=== PATIENT | male | born 1960 | race Caucasian/White ===

== ENCOUNTER 2021-02-24 15:01 | Inpatient (IN) | payer MEDICARE, MEDICAID ==
[~2021-02-24] VITALS: Ht 167.6 cm; Wt 152.0 kg
[~2021-02-24 15:01] MED LIST: ASCO500C18 PO; ASPI-1406 PO; BISA10SU62 RC; COR12 PO; DOCU-138 PO; FINA5TAB3 PO; HYDR-4134 PO; INSU100I28 SQ; LEVE500T9 PO; LEVO125T PO; MOM MT; MULT-622 PO; OXYB5TAB17 PO; RISP05 PO; TAMS-11 PO
[2021-02-24 15:59] LABS: BASOPHILS % 0.5 % (0.0-2.0); EOSINOPHILS % 0.5 % (0.0-5.0); HEMATOCRIT. 34.6 % (42.0-52.0); HEMOGLOBIN. 10.9 g/dL (14.0-18.0); LYMPHOCYTES % 7.4 % (20.0-50.0); MEAN CORPUSCULAR HEMOGLOBIN 23.1 pg (28.0-32.0); MEAN CORPUSCULAR VOLUME 73.8 fL (80.0-94.0); MEAN PLATELET VOLUME 6.9 fl (7.4-10.4); MONOCYTES % 7.7 % (2.0-8.0); NEUTROPHILS % 83.9 % (40.0-76.0); PLATELET 353 x1000/uL (130-400); RED BLOOD CELL COUNT 4.69 mill/uL (4.7-6.1); RED CELL DISTRIBUTION WIDTH 15.9 % (11.6-14.6)
[2021-02-24 16:03] LABS: CHLORIDE 97 mEq/L (98-107)
[2021-02-24] MEDS ORDERED: SODIUM CHLORIDE 0.9% 1,000 ML IV ONE ×2 (17:00→17:30)
[2021-02-24] MEDS ORDERED: POTASSIUM CHLORIDE 20MEQ TABLET SR PO NR (17:30)
[2021-02-24] MEDS ORDERED: INSULIN REGULAR (DRIP) 100 UNITS in SODIUM CHLORIDE 0.9% 100 ML IV NR (17:30)
[2021-02-24 18:10] LABS: CHLORIDE 98 mEq/L (98-107)
[2021-02-24 18:16] LABS: PHOSPHORUS 1.6 mg/dL (2.5-4.9)
[2021-02-24 18:46] LABS: CLARITY URINE CLEAR (CLEAR); COLOR URINE YELLOW (YELLOW); KETONES URINE 2+ (NEGATIVE); LEUKOCYTE ESTERASE URINE NEGATIVE (NEGATIVE); NITRITE URINE NEGATIVE (NEGATIVE); OCCULT BLOOD URINE 1+ (NEGATIVE); PROTEIN URINE 2+ (NEGATIVE); SPECIFIC GRAVITY URINE 1.029 (1.005-1.030); UROBILINOGEN URINE 0.2 E.U./dL (0.2-1.0)
[2021-02-24] MEDS ORDERED: HYDROCODONE/ACETAMINOPHEN 5/325MG TABLET PO PRN (22:15)
[2021-02-24] MEDS ORDERED: SODIUM CHLORIDE 0.45% 1,000 ML IV SCH (22:15)
[2021-02-24] MEDS ORDERED: SODIUM PHOS,M-BASIC-D-BASIC 15 MM in DEXT 5% WATER 245 ML IV NR (22:15)
[2021-02-24] MEDS ORDERED: MAGNESIUM 2 G PREMIX 50 ML IV NR (22:15)
[2021-02-24] MEDS ORDERED: ONDANSETRON HCL 4MG/2ML INJ IV PRN (22:15)
[2021-02-24] MEDS ORDERED: HYDROCODONE/ACETAMINOPHEN 10/325MG TABLET PO PRN (22:17)
[2021-02-25 00:11] LABS: CHLORIDE 102 mEq/L (98-107)
[2021-02-25] MEDS: PIPERACILLIN/TAZOBACTAM 3.375G in DEXT 5% WATER 50ML IV SCH ×3 (01:23→21:12)
[2021-02-25 04:56] LABS: BASOPHILS % 0.4 % (0.0-2.0); EOSINOPHILS % 1.3 % (0.0-5.0); HEMATOCRIT. 33.2 % (42.0-52.0); HEMOGLOBIN. 10.5 g/dL (14.0-18.0); MEAN CORPUSCULAR HEMOGLOBIN 23.6 pg (28.0-32.0); MEAN CORPUSCULAR VOLUME 74.8 fL (80.0-94.0); MONOCYTES % 8.7 % (2.0-8.0); NEUTROPHILS % 78.6 % (40.0-76.0); PLATELET 345 x1000/uL (130-400); RED BLOOD CELL COUNT 4.44 mill/uL (4.7-6.1); RED CELL DISTRIBUTION WIDTH 15.8 % (11.6-14.6)
[2021-02-25 05:03] LABS: CHLORIDE 101 mEq/L (98-107)
[2021-02-25] MEDS ORDERED: DEXTROSE 50% WATER 50ML SYRINGE IV PRN (07:00)
[2021-02-25] MEDS: INSULIN LISPRO (MEDIUM DOSE) 100 UNITS/ML SUBCUT SCH ×4 (07:28→21:02)
[2021-02-25] MEDS ORDERED: PIPERACILLIN/TAZOBACTAM 3.375 G in DEXTROSE 5% WATER 50 ML IV SCH (09:00)
[2021-02-25 09:20] VITALS: BP 125/56
[2021-02-25] MEDS ORDERED: INSULIN GLARGINE UD 100 UNITS/ML SYR SUBCUT SCH ×2 (10:00→23:00)
[2021-02-25] MEDS ORDERED: NALOXONE HCL 0.4MG/ML VIAL IV PRN (10:15)
[2021-02-25] MEDS: BLOOD SUGAR DIAGNOSTIC STRIP TEST SCH ×3 (11:43→21:02)
[2021-02-25 12:00] VITALS: BP 128/60
[2021-02-25] MEDS: SODIUM CHLORIDE 0.9% 1,000 ML IV SCH ×2 (12:00→21:01)
[2021-02-25] MEDS: FLUCONAZOLE 200 MG/100ML BAG 100 ML IV SCH (14:16)
[2021-02-25] MEDS: LIDOCAINE 5% PATCH TOP SCH (14:17)
[2021-02-25 16:00] VITALS: BP 146/67
[2021-02-25 20:00] VITALS: BP 153/70
[2021-02-25] MEDS: BENAZEPRIL 5MG TABLET PO SCH ×2 (22:00→22:24)
[2021-02-25] MEDS: MORPHINE SULFATE 2 MG/ML CPJ (NOT FOR IM USE) IV PRN (22:23)
[2021-02-25] MEDS: GUAIFENESIN 200MG/10ML SUGAR FREE UDC PO PRN (22:24)
[2021-02-26] VITALS: BP 153/58
[2021-02-26] MEDS: GUAIFENESIN 200MG/10ML SUGAR FREE UDC PO PRN ×3 (03:20→20:43)
[2021-02-26] MEDS: MORPHINE SULFATE 2 MG/ML CPJ (NOT FOR IM USE) IV PRN ×5 (03:21→23:53)
[2021-02-26 04:00] VITALS: BP 170/71
[2021-02-26] MEDS: PIPERACILLIN/TAZOBACTAM 3.375G in DEXT 5% WATER 50ML IV SCH ×3 (05:35→22:22)
[2021-02-26] MEDS: BLOOD SUGAR DIAGNOSTIC STRIP TEST SCH ×4 (07:20→20:39)
[2021-02-26] MEDS: LEVOTHYROXINE SODIUM 125MCG TABLET PO SCH ×2 (07:20→09:15)
[2021-02-26] MEDS: LIDOCAINE 5% PATCH TOP SCH (08:59)
[2021-02-26] MEDS: BENAZEPRIL 5MG TABLET PO SCH (09:00)
[2021-02-26] MEDS: INSULIN LISPRO (MEDIUM DOSE) 100 UNITS/ML SUBCUT SCH ×4 (09:02→20:51)
[2021-02-26 12:00] VITALS: BP 145/73
[2021-02-26] MEDS: INSULIN GLARGINE UD 100 UNITS/ML SYR SUBCUT SCH (12:57)
[2021-02-26] MEDS: FLUCONAZOLE 200 MG/100ML BAG 100 ML IV SCH (14:13)
[2021-02-26 16:00] VITALS: BP 142/66
[2021-02-26] MEDS ORDERED: DIPHENOXYLATE/ATROPINE 2.5/0.025MG TABLET PO PRN (17:30)
[2021-02-26 20:00] VITALS: BP 151/67
[2021-02-26 23:53] VITALS: BP 156/78
[2021-02-27] MEDS: GUAIFENESIN 200MG/10ML SUGAR FREE UDC PO PRN ×3 (03:11→20:19)
[2021-02-27 04:00] VITALS: BP 163/78
[2021-02-27] MEDS: MORPHINE SULFATE 2 MG/ML CPJ (NOT FOR IM USE) IV PRN ×3 (05:11→20:19)
[2021-02-27] MEDS: PIPERACILLIN/TAZOBACTAM 3.375G in DEXT 5% WATER 50ML IV SCH ×3 (06:03→22:09)
[2021-02-27] MEDS: LEVOTHYROXINE SODIUM 125MCG TABLET PO SCH (06:03)
[2021-02-27] MEDS: BLOOD SUGAR DIAGNOSTIC STRIP TEST SCH ×4 (07:25→20:32)
[2021-02-27] MEDS: INSULIN LISPRO (MEDIUM DOSE) 100 UNITS/ML SUBCUT SCH ×4 (07:50→20:32)
[2021-02-27 08:00] VITALS: BP 154/72
[2021-02-27] MEDS ORDERED: LIDOCAINE HCL/EPINEPHRINE 1%-EPI 1:100,000 20 ML VIAL INFIL NR (09:00)
[2021-02-27] MEDS: LIDOCAINE 5% PATCH TOP SCH (09:20)
[2021-02-27] MEDS: BENAZEPRIL 5MG TABLET PO SCH (09:21)
[2021-02-27] MEDS: NYSTATIN 100,000 UNITS/GM CREAM 15GM TOP SCH ×3 (09:21→17:00)
[2021-02-27] MEDS: INSULIN GLARGINE UD 100 UNITS/ML SYR SUBCUT SCH (10:50)
[2021-02-27 12:00] VITALS: BP 151/74
[2021-02-27] MEDS: FLUCONAZOLE 200 MG/100ML BAG 100 ML IV SCH (15:47)
[2021-02-27 16:00] VITALS: BP 139/54
[2021-02-27 19:49] VITALS: BP 146/79
[2021-02-28] VITALS: BP 193/134
[2021-02-28] MEDS: GUAIFENESIN 200MG/10ML SUGAR FREE UDC PO PRN ×2 (00:58→15:52)
[2021-02-28] MEDS: MORPHINE SULFATE 2 MG/ML CPJ (NOT FOR IM USE) IV PRN (00:58)
[2021-02-28] MEDS: BLOOD SUGAR DIAGNOSTIC STRIP TEST SCH ×4 (06:22→21:28)
[2021-02-28] MEDS: LEVOTHYROXINE SODIUM 125MCG TABLET PO SCH (06:22)
[2021-02-28] MEDS ORDERED: SKIN ADHESIVE 0.7 GM EA TOP ONE (06:27)
[2021-02-28] MEDS ORDERED: BUPIVACAINE HCL 0.5% (5MG/ML) 50ML ONE (06:27)
[2021-02-28] MEDS ORDERED: POLYMYXIN B SULFATE 500000 UNITS/VIAL ONE (06:28)
[2021-02-28] MEDS: PIPERACILLIN/TAZOBACTAM 3.375G in DEXT 5% WATER 50ML IV SCH ×3 (07:05→21:22)
[2021-02-28] MEDS ORDERED: HYDROMORPHONE HCL/PF 2MG/ML (OR) ONE ×2 (07:53→09:41)
[2021-02-28] MEDS ORDERED: ONDANSETRON HCL 4MG/2ML INJ IV PRN ×2 (08:15→08:45)
[2021-02-28] MEDS ORDERED: MORPHINE SULFATE 2 MG/ML CPJ (NOT FOR IM USE) IV PRN ×2 (08:15)
[2021-02-28] MEDS ORDERED: HYDROCODONE/ACETAMINOPHEN 5/325MG TABLET PO PRN (08:15)
[2021-02-28] MEDS ORDERED: LABETALOL 5MG/ML SYR 20 MG/4 ML SYRINGE IV PRN (08:45)
[2021-02-28] MEDS ORDERED: MEPERIDINE HCL/PF 25MG/ML CPJ IV PRN (08:45)
[2021-02-28] MEDS ORDERED: HYDROMORPHONE HCL/PF 2MG/ML CPJ IV PRN (08:45)
[2021-02-28] MEDS: BENAZEPRIL 5MG TABLET PO SCH (09:00)
[2021-02-28] MEDS ORDERED: INSULIN GLARGINE UD 100 UNITS/ML SYR SUBCUT SCH (10:00)
[2021-02-28] MEDS: NYSTATIN 100,000 UNITS/GM CREAM 15GM TOP SCH ×3 (11:09→18:52)
[2021-02-28] MEDS: LIDOCAINE 5% PATCH TOP SCH (11:12)
[2021-02-28 12:00] VITALS: BP 134/62
[2021-02-28] MEDS: INSULIN REGULAR HUMAN (HIGH DOSE) 100 UNITS/ML 3ML VIAL SUBCUT SCH ×3 (12:50→21:25)
[2021-02-28] MEDS ORDERED: INSULIN GLARGINE UD 100 UNITS/ML SYR SUBCUT NR (14:30)
[2021-02-28] MEDS: FLUCONAZOLE 200 MG/100ML BAG 100 ML IV SCH (15:15)
[2021-02-28] MEDS: DEXT 5%/0.45% NACL KCL 20MEQ/L 1,000 ML IV SCH (15:35)
[2021-02-28 16:00] VITALS: BP 141/63
[2021-02-28 20:00] VITALS: BP 150/69
[2021-03-01] VITALS: BP 160/65
[2021-03-01 04:00] VITALS: BP 150/69
[2021-03-01] MEDS: DEXT 5%/0.45% NACL KCL 20MEQ/L 1,000 ML IV SCH ×2 (06:10→06:11)
[2021-03-01] MEDS: LEVOTHYROXINE SODIUM 125MCG TABLET PO SCH ×2 (06:10→07:20)
[2021-03-01] MEDS: PIPERACILLIN/TAZOBACTAM 3.375G in DEXT 5% WATER 50ML IV SCH ×2 (06:10→16:58)
[2021-03-01] MEDS: BLOOD SUGAR DIAGNOSTIC STRIP TEST SCH ×4 (07:41→21:00)
[2021-03-01 08:00] VITALS: BP 186/88
[2021-03-01] MEDS: INSULIN REGULAR HUMAN (HIGH DOSE) 100 UNITS/ML 3ML VIAL SUBCUT SCH ×4 (08:43→22:02)
[2021-03-01] MEDS: BENAZEPRIL 5MG TABLET PO SCH (09:00)
[2021-03-01] MEDS: MUPIROCIN 2% OINT 22GM TOP SCH ×4 (09:00→17:00)
[2021-03-01] MEDS: HYDRALAZINE HCL 50MG TABLET PO SCH ×2 (09:13→22:04)
[2021-03-01] MEDS: LIDOCAINE 5% PATCH TOP SCH (09:13)
[2021-03-01] MEDS: NYSTATIN 100,000 UNITS/GM CREAM 15GM TOP SCH ×3 (09:14→17:00)
[2021-03-01] MEDS ORDERED: INSULIN GLARGINE UD 100 UNITS/ML SYR SUBCUT SCH ×2 (10:00→22:00)
[2021-03-01 12:00] VITALS: BP 147/75
[2021-03-01 16:00] VITALS: BP 149/71
[2021-03-01] MEDS: FLUCONAZOLE 200 MG/100ML BAG 100 ML IV SCH (16:58)
[2021-03-01] MEDS: INSULIN REGULAR (HUMULIN R) 300UNITS/3ML VIAL SUBCUT SCH (17:11)
[2021-03-01 20:00] VITALS: BP 168/79
[2021-03-01] MEDS ORDERED: VANCOMYCIN 2,000 MG in DEXT 5% WATER 500 ML IV NR (21:00)
[2021-03-02] VITALS: BP 160/80
[2021-03-02 04:00] VITALS: BP 152/79
[2021-03-02] MEDS ORDERED: VANCOMYCIN 1 G PREMIX 200 ML IV SCH (06:00)
[2021-03-02] MEDS: LEVOTHYROXINE SODIUM 125MCG TABLET PO SCH ×2 (06:34→07:20)
[2021-03-02] MEDS: INSULIN REGULAR HUMAN (HIGH DOSE) 100 UNITS/ML 3ML VIAL SUBCUT SCH ×4 (07:03→21:31)
[2021-03-02] MEDS: BLOOD SUGAR DIAGNOSTIC STRIP TEST SCH ×4 (07:05→21:32)
[2021-03-02] MEDS: INSULIN REGULAR (HUMULIN R) 300UNITS/3ML VIAL SUBCUT SCH ×3 (07:05→17:46)
[2021-03-02 08:00] VITALS: BP 136/77
[2021-03-02] MEDS ORDERED: LIDOCAINE HCL 1% 10 MG/ML 10ML VIAL ONE (08:08)
[2021-03-02] MEDS: NYSTATIN 100,000 UNITS/GM CREAM 15GM TOP SCH ×3 (09:00→16:29)
[2021-03-02] MEDS: MUPIROCIN 2% OINT 22GM TOP SCH ×3 (09:00→16:28)
[2021-03-02] MEDS: LIDOCAINE 5% PATCH TOP SCH (09:00)
[2021-03-02] MEDS ORDERED: LANTUSUD SUBCUT (09:11)
[2021-03-02] MEDS ORDERED: HYDR-4135 PO (09:11)
[2021-03-02] MEDS ORDERED: BENA5TAB6 PO (09:11)
[2021-03-02] MEDS ORDERED: LEVO125T8 PO (09:11)
[2021-03-02] MEDS ORDERED: INSU100V3 SUBCUT (09:11)
[2021-03-02] MEDS: BENAZEPRIL 5MG TABLET PO SCH (09:33)
[2021-03-02] MEDS: HYDRALAZINE HCL 50MG TABLET PO SCH ×2 (09:33→21:13)
[2021-03-02] MEDS: INSULIN GLARGINE UD 100 UNITS/ML SYR SUBCUT SCH ×2 (10:00→21:15)
[2021-03-02 12:00] VITALS: BP 138/74
[2021-03-02] MEDS: FLUCONAZOLE 200 MG/100ML BAG 100 ML IV SCH (14:00)
[2021-03-02 16:00] VITALS: BP 128/77
[2021-03-02 20:00] VITALS: BP 165/65
[2021-03-03] VITALS: BP 150/66
[2021-03-03 04:00] VITALS: BP 153/71
[2021-03-03] MEDS: BLOOD SUGAR DIAGNOSTIC STRIP TEST SCH ×4 (06:39→21:34)
[2021-03-03] MEDS: INSULIN REGULAR (HUMULIN R) 300UNITS/3ML VIAL SUBCUT SCH ×3 (06:44→17:44)
[2021-03-03] MEDS: INSULIN REGULAR HUMAN (HIGH DOSE) 100 UNITS/ML 3ML VIAL SUBCUT SCH ×4 (06:45→21:39)
[2021-03-03 07:32] LABS: HEMATOCRIT 31.7 % (42.0-52.0); HEMOGLOBIN 10.2 g/dL (14.0-18.0); MEAN CORPUSCULAR HEMOGLOBIN 23.5 pg (28.0-32.0); MEAN CORPUSCULAR VOLUME 72.7 fL (80.0-94.0); PLATELET 400 x1000/uL (130-400); RED BLOOD CELL COUNT 4.35 mill/uL (4.7-6.1); RED CELL DISTRIBUTION WIDTH 15.7 % (11.6-14.6)
[2021-03-03 07:46] LABS: CHLORIDE 97 mEq/L (98-107)
[2021-03-03 08:00] VITALS: BP 140/68
[2021-03-03] MEDS: NYSTATIN 100,000 UNITS/GM CREAM 15GM TOP SCH ×3 (09:00→16:27)
[2021-03-03] MEDS: MUPIROCIN 2% OINT 22GM TOP SCH ×3 (09:00→16:27)
[2021-03-03] MEDS: LIDOCAINE 5% PATCH TOP SCH (09:00)
[2021-03-03] MEDS: BENAZEPRIL 5MG TABLET PO SCH (09:05)
[2021-03-03] MEDS: HYDRALAZINE HCL 50MG TABLET PO SCH ×2 (09:05→21:34)
[2021-03-03 12:00] VITALS: BP 161/65
[2021-03-03] MEDS ORDERED: INSULIN REGULAR (HUMULIN R) 300UNITS/3ML VIAL SUBCUT NR (12:30)
[2021-03-03] MEDS ORDERED: HYDRALAZINE 20MG/ML VIAL IV NR (12:30)
[2021-03-03 16:00] VITALS: BP 133/59
[2021-03-03 20:00] VITALS: BP 155/82
[2021-03-03] MEDS: INSULIN GLARGINE UD 100 UNITS/ML SYR SUBCUT SCH (21:39)
[2021-03-04] VITALS: BP 125/65
[2021-03-04 04:00] VITALS: BP 130/65
[2021-03-04] MEDS: BLOOD SUGAR DIAGNOSTIC STRIP TEST SCH ×2 (06:46→12:19)
[2021-03-04] MEDS: LEVOTHYROXINE SODIUM 125MCG TABLET PO SCH (06:46)
[2021-03-04 06:51] LABS: BASOPHILS % 0.6 % (0.0-2.0); EOSINOPHILS % 2.6 % (0.0-5.0); HEMATOCRIT. 30.9 % (42.0-52.0); HEMOGLOBIN. 9.9 g/dL (14.0-18.0); LYMPHOCYTES % 25.1 % (20.0-50.0); MEAN CORPUSCULAR HEMOGLOBIN 23.1 pg (28.0-32.0); MEAN CORPUSCULAR VOLUME 72.4 fL (80.0-94.0); MONOCYTES % 5.5 % (2.0-8.0); NEUTROPHILS % 66.2 % (40.0-76.0); PLATELET 422 x1000/uL (130-400); RED BLOOD CELL COUNT 4.26 mill/uL (4.7-6.1)
[2021-03-04 06:53] LABS: CHLORIDE 99 mEq/L (98-107)
[2021-03-04 06:58] LABS: PHOSPHORUS 2.6 mg/dL (2.5-4.9)
[2021-03-04] MEDS: INSULIN REGULAR (HUMULIN R) 300UNITS/3ML VIAL SUBCUT SCH ×2 (07:23→12:19)
[2021-03-04 08:00] VITALS: BP 149/71
[2021-03-04] MEDS: INSULIN REGULAR HUMAN (HIGH DOSE) 100 UNITS/ML 3ML VIAL SUBCUT SCH ×2 (08:03→12:19)
[2021-03-04] MEDS: BENAZEPRIL 5MG TABLET PO SCH (09:00)
[2021-03-04] MEDS: LIDOCAINE 5% PATCH TOP SCH (09:00)
[2021-03-04] MEDS: MUPIROCIN 2% OINT 22GM TOP SCH (09:00)
[2021-03-04] MEDS: NYSTATIN 100,000 UNITS/GM CREAM 15GM TOP SCH (09:00)
[2021-03-04] MEDS: HYDRALAZINE HCL 50MG TABLET PO SCH (09:03)
[2021-03-04] MEDS ORDERED: SODIUM CHLORIDE 0.9% 1,000 ML IV SCH (10:00)
[2021-03-04] MEDS: INSULIN GLARGINE UD 100 UNITS/ML SYR SUBCUT SCH (10:56)
[2021-03-04 11:51] VITALS: BP 136/72
[2021-03-04 12:00] VITALS: BP 136/72
== END 2021-03-04 17:02 | DRG 853 ==
LOC: ER 15:01 → EDBEDREQTM 18:13 → EDBEDREQ 18:13 → EDBEDREQSVC 19:27 → MICUSO 23:35 → 6WST 02-25 10:02
PROVIDERS: ADMIT Family Medicine; ATTEND Family Medicine
PROC: 0JBC0ZZ Excision of Pelvic Region Subcutaneous Tissue and Fascia, Open Approach (ICD-10-PCS; principal; 2021-02-27)
PROC: 0W9K3ZZ Drainage of Upper Back, Percutaneous Approach (ICD-10-PCS; 2021-02-28)
DX: A41.9 Sepsis, unspecified organism (principal); E11.10 Type 2 diabetes mellitus with ketoacidosis without coma; E43 Unspecified severe protein-calorie malnutrition; Z68.43 Body mass index [BMI] 50.0-59.9, adult; E87.1 Hypo-osmolality and hyponatremia; L03.312 Cellulitis of back [any part except buttock and flank]; L02.212 Cutaneous abscess of back [any part, except buttock and flank]; L02.211 Cutaneous abscess of abdominal wall; L03.311 Cellulitis of abdominal wall; E11.22 Type 2 diabetes mellitus with diabetic chronic kidney disease; F20.9 Schizophrenia, unspecified; E83.42 Hypomagnesemia; E66.9 Obesity, unspecified; I12.9 Hypertensive chronic kidney disease with stage 1 through stage 4 chronic kidney disease, or unspecified chronic kidney disease; N18.1 Chronic kidney disease, stage 1; E03.9 Hypothyroidism, unspecified; F31.9 Bipolar disorder, unspecified; E66.01 Morbid (severe) obesity due to excess calories; E78.5 Hyperlipidemia, unspecified; I25.10 Atherosclerotic heart disease of native coronary artery without angina pectoris; E83.39 Other disorders of phosphorus metabolism; N40.1 Benign prostatic hyperplasia with lower urinary tract symptoms; D64.9 Anemia, unspecified; Z20.822 Contact with and (suspected) exposure to COVID-19; E11.51 Type 2 diabetes mellitus with diabetic peripheral angiopathy without gangrene; Z91.19 Patient's noncompliance with other medical treatment and regimen; Z99.3 Dependence on wheelchair; Z89.511 Acquired absence of right leg below knee; Z89.512 Acquired absence of left leg below knee; Z88.6 Allergy status to analgesic agent; Z79.899 Other long term (current) drug therapy; Z88.1 Allergy status to other antibiotic agents; Z88.8 Allergy status to other drugs, medicaments and biological substances; Z79.4 Long term (current) use of insulin; Z89.611 Acquired absence of right leg above knee; Z89.612 Acquired absence of left leg above knee; Z74.01 Bed confinement status; Z86.14 Personal history of Methicillin resistant Staphylococcus aureus infection
CPT/HCPCS: 36415; 71045; 80048; 80053; 81003; 82962; 83036; 83605; 83735; 83880; 84100; 84484; 85025; 85027; 87070; 87075; 87077; 87186; 87426; 93005; 99291; C1893; J0360; J1170; J1450; J1815; J2175; J2270; J2405; J2543; J3370; J3475; J3490; J7030; J7050; J7060; A4315